=== PATIENT | male | born 1965 | race Caucasian/White ===

== ENCOUNTER → 2017-05-16 | Outpatient (CLI) | payer BC ==
--- NOTE | 2017-05-17 07:20 | CT ---
EXAMINATION TYPE: CT soft tissue neck w con DATE OF EXAM: 05/16/2017 HISTORY: Vocal cord paralysis x 5 weeks. COMPARISON: NONE CT DLP: 576.9 mGycm. Automated Exposure Control for Dose Reduction was Utilized. TECHNIQUE: CT scan of the neck is performed with IV Contrast, patient injected with 100 mL of Omnipa que 300, axial images are obtained, coronal and sagittal reformatted images are reviewed. FINDINGS: Airway: Nasopharyngeal and oropharyngeal airways are grossly patent. Region of epiglottis and vallecu la appears within normal limits. Hypopharyngeal airway appears unremarkable. Thyroid gland is normal in size. There is 1.5 cm lower pole left thyroid nodule suspected coronal image 37. Ultrasound follow -up is advised. There is perhaps mild emphysematous change in visualized lungs which otherwise are cl ear. Parotid/submandibular glands: No gross abnormality seen. Carotid/Vascular Structures: No significant plaque or stenosis at carotid bulb level bilaterally. Rock tebrobasilar system is small in caliber, correlate for vertebrobasilar insufficiency Osseous Structures: There is dextroconvex scoliotic curvature centered in the upper to mid thoracic s pine. Other: No suspicious greater than 1 cm neck adenopathy is seen. Some scattered subcentimeter lymph no ernesto are present bilaterally. Visualized paranasal sinuses are clear. Visualized portion of brain parenchyma is unremarkable. IMPRESSION: 1. No significant abnormality is seen to account for patient's vocal cord paralysis. 2. Probable greater than 1 cm lower pole left thyroid nodule, advise thyroid ultrasound follow-up to further evaluate and characterize. 3. No significant plaque but overall small caliber vertebrobasilar system raises concern for vertebro basilar insufficiency. Correlate clinically.
== END | disposition home or self-care (01) ==
LOC: RADCTMAIN 17:03
PROVIDERS: ATTEND Otolaryngology
DX: J38.01 Paralysis of vocal cords and larynx, unilateral (principal)
CPT/HCPCS: 70491; Q9967

== ENCOUNTER → 2017-05-28 | Outpatient (CLI) | payer BC ==
--- NOTE | 2017-05-28 14:05 | US ---
EXAMINATION TYPE: US thyroid st tissue head/neck DATE OF EXAM: 05/28/2017 COMPARISON: CT 05/16/2017 CLINICAL HISTORY: 52-year-old male E04.1 Thyroid nodule. Left side thyroid nodule visualized on CT. L oss of voice TECHNIQUE: Multiple sonographic images of the thyroid gland are obtained. FINDINGS: GLAND SIZE: Right Lobe: 5.9 x 2.2 x 1.6 cm Overall Parenchyma: heterogenous Left Lobe: 5.6 x 2.4 x 1.6 cm Overall Parenchyma: heterogeneous Isthmus Thickness: 0.4 cm NODULES RIGHT: # of nodules measured on right: 0 LEFT: # of nodules measured on left: 1 1. 1.9 X 1.6 x 1.5 cm hypoechoic solid nodule at the lower pole with well-defined margins; . This nodule is taller than wide and shows intranodular vascularity. Prior size: No previous ultrasound ISTHMUS: # of nodules measured in the isthmus: 0 Bilateral neck scanned, no evidence of lymphadenopathy. IMPRESSION: 1. Thyromegaly. 2. Solitary 1.9 cm solid nodule in the left lower pole. If no clinical findings to indicate a hyperfu nctioning adenoma, FNA can be considered.
== END | disposition home or self-care (01) ==
LOC: RADUSWWP 12:43
PROVIDERS: ATTEND Otolaryngology
DX: E04.1 Nontoxic single thyroid nodule (principal)
CPT/HCPCS: 76536

== ENCOUNTER → 2017-06-21 | Outpatient (CLI) | payer BC ==
[2017-06-21 17:28] LABS: T4, Free (Free Thyroxine) 1.14 ng/dL (0.78-2.19)
[2017-06-22 00:39] LABS: Thyroid Peroxidase Antibodies <28.0 U/mL (0.0-60.0)
== END | disposition home or self-care (01) ==
LOC: LABWHC1 16:19
PROVIDERS: ATTEND Otolaryngology
DX: E04.1 Nontoxic single thyroid nodule (principal)
CPT/HCPCS: 36415; 84439; 84443; 84481; 86376; 86800

== ENCOUNTER 2017-07-04 11:39 | Day surgery (SDC) | payer BC ==
[2017-07-04 12:41] VITALS: TEMP 97.9
[2017-07-04] MEDS ORDERED: ALPRAZolam 0.5 MG TAB PO STA (12:46)
[2017-07-04 13:56] VITALS: BP 124/68; PULSE 74; RESP 14
--- NOTE | 2017-07-04 15:42 | US ---
EXAMINATION TYPE: US FNA thyroid DATE OF EXAM: 07/04/2017 COMPARISON: Ultrasound 05/28/2017 HISTORY: Thyroid nodule, E04.1 Maximal barrier technique was utilized. Ultrasound using sterile technique. The skin overlying the no dule was localized with ultrasound and the overlying skin prepped and draped. Lidocaine used for loca l anesthesia. 5 passes with a 25-gauge needle were made into the left lower pole thyroid nodule under ultrasound guidance. Aspirate specimen submitted to cytology. Following the procedure hemostasis ach ieved. No immediate complication IMPRESSION: Status post ultrasound-guided fine-needle aspiration of thyroid nodule, pathology pending .
== END 2017-07-04 13:58 | disposition home or self-care (01) ==
LOC: RADPROMAIN 11:39
PROVIDERS: ATTEND Otolaryngology
DX: E04.1 Nontoxic single thyroid nodule (principal)
CPT/HCPCS: 10022; 76942; 88173; 88305

== ENCOUNTER → 2017-12-19 | Outpatient (CLI) | payer BC ==
--- NOTE | 2017-12-19 18:07 | US ---
EXAMINATION TYPE: US thyroid st tissue head/neck DATE OF EXAM: 12/19/2017 COMPARISON: 05/28/2017 CLINICAL HISTORY: E04.1 Thyroid Nodule left. GLAND SIZE: Right Lobe: 4.5 x 2.3 x 1.5 cm Overall Parenchyma: homogenous Left Lobe: 4.8 x 2.0 x 1.7 cm Overall Parenchyma: homogeneous Isthmus Thickness: 0.6 cm NODULES RIGHT: # of nodules measured on right: 0 LEFT: # of nodules measured on left: 1 1. 1.6 X 1.3 x 1.2 cm solid nodule at the lower pole with well-defined margins; . This nodule is t aller than wide and shows intranodular vascularity. Prior size: 1.9 x 1.6 x 1.5 cm ISTHMUS: # of nodules measured in the isthmus: 0 Bilateral neck scanned, no evidence of lymphadenopathy. IMPRESSION: Complex nodule in the left thyroid lobe measures smaller than old exam. Nodule appears more cystic on today's exam.
== END | disposition home or self-care (01) ==
LOC: RADUSWWP 16:34
PROVIDERS: ATTEND Otolaryngology
DX: E04.1 Nontoxic single thyroid nodule (principal)
CPT/HCPCS: 76536

== ENCOUNTER → 2018-09-04 | Outpatient (CLI) | payer BC ==
--- NOTE | 2018-09-04 13:09 | US ---
EXAMINATION TYPE: US thyroid st tissue head/neck DATE OF EXAM: 09/04/2018 COMPARISON: CLINICAL HISTORY: E04.1 thyroid nodule. Follow up thyroid nodule. Hx of FNA- normal, on meds. GLAND SIZE: Right Lobe: 5.3 x 2.0 x 2.1 cm Overall Parenchyma: homogenous Left Lobe: 5.1 x 2.0 x 1.8 cm Overall Parenchyma: homogeneous Isthmus Thickness: 0.4 cm NODULES RIGHT: # of nodules measured on right: 1 1. 0.4 X 0.4 x 0.3 cm hypoechoic nodule at the lower pole with margins. This nodule is wider than tall and shows no intranodular vascularity. Prior size: No prior LEFT: # of nodules measured on left: 1 1. 1.8 X 1.6 x 1.3 cm mixed nodule at the lower pole with well-defined margins. This nodule is wid er than tall and shows no intranodular vascularity. Prior size: 1.6 x 1.3 x 1.2 cm ISTHMUS: # of nodules measured in the isthmus: 0 Bilateral neck scanned, no evidence of lymphadenopathy. IMPRESSION: 1. Slight increase in size of a left lobe thyroid nodule.
== END | disposition home or self-care (01) ==
LOC: RADUSWWP 12:04
PROVIDERS: ATTEND Otolaryngology
DX: E04.1 Nontoxic single thyroid nodule (principal)
CPT/HCPCS: 76536

== ENCOUNTER → 2019-11-11 | Outpatient (CLI) | payer BC ==
[2019-11-11 10:01] LABS: T4, Free (Free Thyroxine) 0.89 ng/dL (0.78-2.19)
[2019-11-11 10:37] LABS: Albumin 4.3 g/dL (3.5-5.0); Bilirubin, Delta 0.2 mg/dL (0.0-0.2); Bilirubin,Unconjugated 0.5 mg/dL (0.0-1.1); Total Bilirubin 0.7 mg/dL (0.2-1.3); Total Protein 6.5 g/dL (6.3-8.2)
--- NOTE | 2019-11-11 11:52 | US ---
EXAMINATION TYPE: US thyroid st tissue head/neck DATE OF EXAM: 11/11/2019 COMPARISON: 09/04/2018 CLINICAL HISTORY: R22.0 NODULE. Not on thyroid meds. Follow up nodules. GLAND SIZE: Right Lobe: 5.1 x 2.0 x 1.7 cm Overall Parenchyma: heterogenous Left Lobe: 5.2 x 2.6 x 1.9 cm Overall Parenchyma: heterogeneous Isthmus Thickness: 0.4 cm NODULES RIGHT: # of nodules measured on right: 1 1. 0.5 X 0.5 x 0.3 cm mixed nodule at the lower pole with well-defined margins. This nodule is wid er than tall and shows no intranodular vascularity. Prior size: 0.4 x 0.4 x 0.3 cm LEFT: # of nodules measured on left: 1 1. 2.1 X 1.8 x 2.1 cm mixed nodule at the lower pole with well-defined margins. This nodule is shyam ler than wide and shows no intranodular vascularity. Prior size: 1.8 x 1.6 x 1.3 cm ISTHMUS: # of nodules measured in the isthmus: 0 Bilateral neck scanned, no evidence of lymphadenopathy. IMPRESSION: Stable thyroid ultrasound
== END | disposition home or self-care (01) ==
LOC: RADUSWWP 08:49
PROVIDERS: ATTEND Otolaryngology
DX: E04.1 Nontoxic single thyroid nodule (principal); Z00.00 Encounter for general adult medical examination without abnormal findings
CPT/HCPCS: 76536; 80061; 80076; 82947; 84439; 84443; 84481

== ENCOUNTER → 2021-07-24 | Outpatient (CLI) | payer BC ==
[2021-07-24 11:01] LABS: ALT 43 U/L (10-49); AST 29 U/L (14-35); Albumin 4.7 g/dL (3.8-4.9); Albumin/Globulin Ratio 2.35 (1.60-3.17); Alkaline Phosphatase 52 U/L (41-126); Bilirubin, Conjugated <0.20 mg/dL (0.20-0.40); Glucose 100 mg/dL (70-110); LDL Cholesterol,Calculated 140.5 mg/dL (0.0-131.0); Total Protein 6.7 g/dL (6.2-8.2)
== END | disposition home or self-care (01) ==
LOC: LABWHC1 07:25
PROVIDERS: ATTEND Internal Medicine
DX: Z00.00 Encounter for general adult medical examination without abnormal findings (principal); Z12.5 Encounter for screening for malignant neoplasm of prostate; E04.1 Nontoxic single thyroid nodule
CPT/HCPCS: 36415; 80061; 80076; 82947; 84153; 84439; 84443

== ENCOUNTER → 2022-08-22 | Outpatient (CLI) | payer BC ==
--- NOTE | 2022-08-22 15:29 | US ---
EXAMINATION TYPE: US thyroid st tissue head/neck DATE OF EXAM: 08/22/2022 COMPARISON: Most recent exam 11/08/2019 CLINICAL INDICATION: Male, 57 years old with history of E04.1 NONTOXIC SINGLE THYROID NODULE; follow up thyroid nodules GLAND SIZE: Right Lobe: 5.6 x 2.6 x 1.9 cm Overall Parenchyma: heterogenous Left Lobe: 5.5 x 2.4 x1.7 cm Overall Parenchyma: heterogenous Isthmus Thickness: 0.5 cm NODULES RIGHT: # of nodules measured on right: 1 1. 0.7 X 0.4 x 0.7 cm, lower , Prior size: 0.7 x 0.4 x 0.6 cm TIRADS Score: 2 TIRADS Category 2: Not Suspicious Composition: Mixed cystic and solid (1 point). Echogenicity: Hyperechoic or isoechoic (1 point). Shape: Wider than tall (0 points). Margin: Smooth (0 points). Echogenic foci: None or large comet-tail artifacts (0 points) Recommendation: No FNA LEFT: # of nodules measured on left: 2 1. 1.2 X 0.8 x 0.8 cm, lower , Prior size: 1.3 x 0.9 x 1.1 cm TIRADS Score: 4 TIRADS Category 4: Moderately Suspicious Composition: Solid or almost completely solid (2 points). Echogenicity: Hypoechoic (2 points). Shape: Wider than tall (0 points). Margin: Smooth (0 points). Echogenic foci: None or large comet-tail artifacts (0 points) Recommendation: If >1.5cm: FNA; If >1cm: Follow up at 1,2, 3,5 years 2. 0.6 X 0.5 x 0.7 cm, lower , Prior size: not seen on prior exam TIRADS Score: 2 TIRADS Category 2: Not Suspicious Composition: Mixed cystic and solid (1 point). Echogenicity: Hyperechoic or isoechoic (1 point). Shape: Wider than tall (0 points). Margin: Smooth (0 points). Echogenic foci: None or large comet-tail artifacts (0 points) Recommendation: No FNA ISTHMUS: # of nodules measured in the isthmus: 0 Bilateral neck scanned, no evidence of lymphadenopathy. IMPRESSION: Bilateral thyroid nodules, the left 1.2 cm thyroid nodule meets criteria for follow-up in one year.
== END | disposition home or self-care (01) ==
LOC: RADUSWWP 14:50
PROVIDERS: ATTEND Family Medicine
DX: E04.2 Nontoxic multinodular goiter (principal)
CPT/HCPCS: 76536

== ENCOUNTER → 2023-07-25 | Outpatient (CLI) | payer BC ==
--- NOTE | 2023-07-25 17:27 | US ---
EXAMINATION TYPE: US thyroid st tissue head/neck DATE OF EXAM: 07/25/2023 COMPARISON: 08/22/2022 CLINICAL INDICATION: Male, 58 years old with history of E04.1 NONTOXIC SINGLE THYROID NODULE; thyroid nodule GLAND SIZE: Right Lobe: 6.0 x 2.5 x 2.0 cm Overall Parenchyma: homogeneous Left Lobe: 5.3 x 1.9 x 1.7 cm Overall Parenchyma: homogeneous Isthmus Thickness: .4 cm NODULES RIGHT: # of nodules measured on right: 1 1. .7 X .4 x .8 cm, lower medial, mixed cystic and solid, hypoechoic nodule, which is wider than ta ll, with smooth margins, without echogenic foci. Prior size: .7 x .5 x .7 cm LEFT: # of nodules measured on left: 2 1. .6 X .6 x .7 cm, lower lateral, mixed cystic and solid, hypoechoic nodule, which is wider than t all, with smooth margins, without echogenic foci. Prior size: .6 x .5 x .7 cm 2. 1.0 X .7 x .6 cm, lower medial, solid or almost completely solid, hypoechoic nodule, which is w ider than tall, with smooth margins, without echogenic foci. Prior size: 1.2 x .8 x .7 cm ISTHMUS: # of nodules measured in the isthmus: 0 Bilateral neck scanned, no evidence of lymphadenopathy. IMPRESSION: 1. Borderline thyroid enlargement. 2. single stable right thyroid nodule and 2 stable left thyroid nodules 3. Continued follow-up in one year is recommended. 2017 ACR TI-RADS LEVEL: 4 for left thyroid nodule labeled #1. *Highest TI-RADS level nodule reported
== END | disposition home or self-care (01) ==
LOC: RADUSWWP 14:17
PROVIDERS: ATTEND Family Medicine
DX: E04.1 Nontoxic single thyroid nodule (principal)
CPT/HCPCS: 76536

== ENCOUNTER → 2023-08-02 | Outpatient (CLI) | payer BC ==
--- NOTE | 2023-08-07 17:59 | MR ---
EXAMINATION TYPE: MR brain wo con DATE OF EXAM: 08/02/2023 7:07 AM CLINICAL INDICATION:Male, 58 years old with history of R41.82 ALTERED MENTAL STATUS Z82.0 FAM HISTORY OF EPILEPSY; PHH, AMS, family hx epilepsy. COMPARISON: None.. TECHNIQUE: Multi planar, multi sequence imaging was performed through the brain including: T1, T2, In version recovery, Diffusion weighted imaging, and gradient echo imaging. No gadolinium was given. FINDINGS: The leiva-white junctions, ventricular system, basal cisterns appear unremarkable. . Midline structur es show no abnormality. Diffusion-weighted imaging shows no evidence of restricted diffusion. The valeria ceptibility weighted images do not reveal any evidence for micro-hemorrhage. The bone marrow signal is within normal limits. Paranasal sinuses and mastoid air cells: No significant paranasal sinus disease. Visualized orbits: Orbital contents are intact. IMPRESSION: 1. No evidence of intracranial mass or acute/subacute infarct.
== END | disposition home or self-care (01) ==
LOC: RADMRIMAIN 06:33
PROVIDERS: ATTEND Family Medicine
DX: R41.82 Altered mental status, unspecified (principal); Z82.0 Family history of epilepsy and other diseases of the nervous system
CPT/HCPCS: 70551